=== PATIENT | male | born 1995 ===

== ENCOUNTER 2019-03-20 12:21 | Emergency (ER) | payer BC ==
[~2019-03-20] VITALS: Ht 188 cm; Wt 65.9 kg
[2019-03-20 12:56] VITALS: BP 121/66
== END 2019-03-20 13:41 | disposition home or self-care (01) ==
LOC: EMS 12:29
DX: J02.8 Acute pharyngitis due to other specified organisms (principal); B97.89 Other viral agents as the cause of diseases classified elsewhere; F17.210 Nicotine dependence, cigarettes, uncomplicated
CPT/HCPCS: 87430